=== PATIENT | male | born 2000 | race Caucasian/White ===

== ENCOUNTER 2024-05-16 18:04 | Emergency (ER) | payer OTHER ==
[~2024-05-16] VITALS: Ht 182.9 cm; Wt 118.4 kg
[2024-05-16] MEDS ORDERED: IBUP-1953 PO (19:17)
[2024-05-16] MEDS ORDERED: CEPH-570 PO (19:17)
[2024-05-16 19:22] VITALS: BP 143/89; TEMP 98.6; O2SAT 96
== END 2024-05-16 19:23 | disposition home or self-care (01) ==
LOC: ER 18:07
DX: L03.316 Cellulitis of umbilicus (principal)